=== PATIENT | female | born 1945 | race Asian ===

== ENCOUNTER 2017-11-12 07:21 | Observation (INO) | payer MEDICARE ==
[~2017-11-12] VITALS: Ht 157.5 cm; Wt 62.1 kg
[2017-11-12 07:27] VITALS: BP 165/78
[2017-11-12] MEDS ORDERED: NACL 0.9% 1,000 ML IV ONE (07:43)
[2017-11-12 08:22] LABS: BASOPHILS # (AUTO) 0.1 K/uL (0.00-0.22); BASOPHILS % (AUTO) 0.7 % (0.0-2.0); EOSINOPHILS # (AUTO) 0.1 K/uL (0-0.4); EOSINOPHILS % (AUTO) 1.1 % (0.0-4.0); HEMATOCRIT 37.9 % (36-48); HEMOGLOBIN 12.9 g/dL (12.0-16.0); LYMPHOCYTES # (AUTO) 2.8 K/uL (2.5-16.5); LYMPHOCYTES % (AUTO) 34.9 % (20.5-51.1); MEAN CORPUSCULAR HEMOGLOBIN 31 pg (27-31); MEAN CORPUSCULAR HGB CONC 34 g/dL (33-37); MEAN CORPUSCULAR VOLUME 89.8 fL (80-94); MONOCYTES # (AUTO) 0.5 K/uL (0.8-1.0); MONOCYTES % (AUTO) 5.7 % (1.7-9.3); NEUTROPHILS # (AUTO) 4.6 K/uL (1.8-7.7); NEUTROPHILS % (AUTO) 57.6 % (42.2-75.2); PLATELET COUNT (AUTO) 206 K/uL (140-450); RED BLOOD CELL COUNT(AUTO) 4.22 MIL/uL (4.20-5.40); RED CELL DISTRIBUTION WIDTH 13.2 % (11.6-13.7)
[2017-11-12 08:38] LABS: AMYLASE 37 U/L (25-115); LIPASE 211 U/L (73-393)
[2017-11-12 08:44] LABS: ANION GAP 11.3 (8-16); ASPARTATE AMINOTRANSFERASE 10 U/L (15-37); CARBON DIOXIDE 28.3 mmol/L (21-32); CHLORIDE 103 mmol/L (98-107); CREATININE 0.7 mg/dL (0.6-1.3); GLUCOSE 138 mg/dL (74-106); POTASSIUM 3.6 mmol/L (3.5-5.1); SODIUM SERUM 139 mmol/L (136-145); TOTAL BILIRUBIN 0.4 mg/dL (0.0-1.0); UREA NITROGEN, BLOOD 15 mg/dL (7-18)
[2017-11-12 09:17] LABS: PROTHROMBIN TIME 9.5 secs (10.8-13.4)
[2017-11-12 10:11] LABS: APPEARANCE,URINE CLEAR (CLEAR); BILIRUBIN,URINE NEGATIVE (NEGATIVE); BLOOD, URINE NEGATIVE (NEGATIVE); LEUKOCYTE ESTERASE ,URINE NEGATIVE (NEGATIVE); NITRITE, URINE NEGATIVE (NEGATIVE); PH,URINE 7.5 (5.0-9.0); UGLUCOSE NEGATIVE (NEGATIVE)
[2017-11-12 10:20] LABS: COLOR,URINE STRAW (YELLOW)
[2017-11-12 10:50] LABS: MAGNESIUM 1.8 mg/dL (1.8-2.4); THYROID STIMULATING HORMONE 2.23 uIU/mL (0.34-3.74)
[2017-11-12] MEDS ORDERED: ONDANSETRON 4 MG/2 ML VIAL IVP PRN (10:55)
[2017-11-12] MEDS ORDERED: DEXTROSE 50% 50 ML SYR IVP PRN (10:55)
[2017-11-12] MEDS ORDERED: INSULIN LISPRO SLIDING SCALE 100 UNITS/ML VIAL SUBQ PRN (10:55)
[2017-11-12] MEDS ORDERED: ACETAMINOPHEN 325 MG TAB PO PRN (10:55)
[2017-11-12] MEDS ORDERED: HYDROcodone/APAP 5/325 MG 1 TAB TAB PO PRN ×2 (10:55)
[2017-11-12 11:45] VITALS: BP 157/63
[2017-11-12] MEDS: BLOOD GLUCOSE MONITORING 1 DEV DEV FS SCH ×3 (12:14→20:14)
[2017-11-12] MEDS ORDERED: PANTOPRAZOLE 40 MG TABEC PO SCH (12:30)
[2017-11-12 16:00] VITALS: BP 149/63
[2017-11-12 17:46] LABS: CREATINE KINASE MB 0.6 ng/mL (0-3.6)
[2017-11-12 20:00] VITALS: BP 130/58
[2017-11-12] MEDS: LISINOPRIL 20 MG TAB PO SCH (20:11)
[2017-11-12] MEDS: CARVEDILOL 12.5 MG TAB PO SCH (20:11)
[2017-11-13 00:28] VITALS: BP 135/59
[2017-11-13 04:00] VITALS: BP 136/63
[2017-11-13 06:33] LABS: BASOPHILS # (AUTO) 0.1 K/uL (0.00-0.22); BASOPHILS % (AUTO) 1.6 % (0.0-2.0); EOSINOPHILS # (AUTO) 0.1 K/uL (0-0.4); EOSINOPHILS % (AUTO) 1.9 % (0.0-4.0); HEMATOCRIT 38.2 % (36-48); HEMOGLOBIN 12.7 g/dL (12.0-16.0); LYMPHOCYTES # (AUTO) 3.1 K/uL (2.5-16.5); LYMPHOCYTES % (AUTO) 38.7 % (20.5-51.1); MEAN CORPUSCULAR HEMOGLOBIN 30 pg (27-31); MEAN CORPUSCULAR HGB CONC 33 g/dL (33-37); MEAN CORPUSCULAR VOLUME 90.7 fL (80-94); MONOCYTES # (AUTO) 0.5 K/uL (0.8-1.0); MONOCYTES % (AUTO) 6.6 % (1.7-9.3); NEUTROPHILS # (AUTO) 4.1 K/uL (1.8-7.7); NEUTROPHILS % (AUTO) 51.2 % (42.2-75.2); PLATELET COUNT (AUTO) 204 K/uL (140-450); RED BLOOD CELL COUNT(AUTO) 4.21 MIL/uL (4.20-5.40); RED CELL DISTRIBUTION WIDTH 13.5 % (11.6-13.7); WHITE BLOOD COUNT (AUTO) 7.9 K/uL (4.8-10.8)
[2017-11-13] MEDS: BLOOD GLUCOSE MONITORING 1 DEV DEV FS SCH ×2 (06:46→12:09)
[2017-11-13 06:53] LABS: ALBUMIN 3.5 g/dL (3.4-5.0); ANION GAP 14.7 (8-16); ASPARTATE AMINOTRANSFERASE 9 U/L (15-37); CARBON DIOXIDE 27.5 mmol/L (21-32); CHLORIDE 106 mmol/L (98-107); CREATININE 0.8 mg/dL (0.6-1.3); GLUCOSE 142 mg/dL (74-106); MAGNESIUM 1.9 mg/dL (1.8-2.4); POTASSIUM 4.2 mmol/L (3.5-5.1); SODIUM SERUM 144 mmol/L (136-145); TOTAL BILIRUBIN 0.4 mg/dL (0.0-1.0); UREA NITROGEN, BLOOD 19 mg/dL (7-18)
[2017-11-13 08:00] VITALS: BP 156/61
[2017-11-13] MEDS: CARVEDILOL 12.5 MG TAB PO SCH (08:37)
[2017-11-13] MEDS: LISINOPRIL 20 MG TAB PO SCH (08:37)
[2017-11-13] MEDS: metFORMIN 500 MG TAB PO SCH ×2 (08:38→12:08)
[2017-11-13] MEDS ORDERED: OMEG-32 PO (08:49)
[2017-11-13] MEDS ORDERED: ASPI81CT89 PO (08:49)
[2017-11-13] MEDS ORDERED: AMLO10TA PO (08:49)
[2017-11-13] MEDS ORDERED: GLIM1TAB6 PO (08:49)
[2017-11-13] MEDS ORDERED: LISI-420 PO (08:49)
[2017-11-13] MEDS ORDERED: CALC-1030 PO (08:49)
[2017-11-13] MEDS ORDERED: CARV25TA PO (08:49)
[2017-11-13] MEDS ORDERED: PANTOPRAZOLE 40 MG TABEC PO SCH (09:00)
[2017-11-13] MEDS ORDERED: GLIMEPIRIDE 2 MG TAB PO SCH (09:00)
[2017-11-13] MEDS ORDERED: ASPIRIN 81 MG TAB.CHEW PO SCH ×2 (09:00)
[2017-11-13] MEDS ORDERED: amLODIPine 5 MG TAB PO SCH (09:00)
[2017-11-13 11:29] LABS: CREATINE KINASE MB 0.8 ng/mL (0-3.6)
[2017-11-13 12:00] VITALS: BP 123/64
== END 2017-11-13 15:40 | disposition home or self-care (01) ==
LOC: MED 07:21 → MTU 10:54
PROVIDERS: ADMIT Hospitalist; ATTEND Hospitalist
DX: R07.89 Other chest pain (principal); I10 Essential (primary) hypertension; E11.9 Type 2 diabetes mellitus without complications; E78.5 Hyperlipidemia, unspecified; K21.9 Gastro-esophageal reflux disease without esophagitis; Z86.73 Personal history of transient ischemic attack (TIA), and cerebral infarction without residual deficits; Z95.0 Presence of cardiac pacemaker
CPT/HCPCS: 36415; 71045; 80053; 81003; 82150; 82550; 82553; 82948; 83690; 83735; 83880; 84443; 84484; 85025; 85610; 85730; 87081; 93005; 93017; 96360; 96361; 99285; G0378; J1815

== ENCOUNTER 2018-08-06 01:29 | Emergency (ER) | payer MEDICARE ==
[~2018-08-06] VITALS: Ht 152.4 cm; Wt 62.6 kg
[~2018-08-06 01:29] MED LIST: AMLO10TA PO; ASPI-1718 PO; CALC-1030 PO; CARV25TA PO; GLIM1TAB6 PO; LISI-420 PO; OMEG-32 PO
--- NOTE | 2018-08-06 01:30 | NUR ---
BIB WHEELCHAIR TO ER BED 6
[2018-08-06 01:36] VITALS: BP 161/84
[2018-08-06] MEDS ORDERED: ASPIRIN 81 MG TAB.CHEW PO ONE (01:40)
[2018-08-06] MEDS ORDERED: NACL 0.9% 1,000 ML IV ONE (01:40)
--- NOTE | 2018-08-06 01:45 | NUR ---
PT BIB FAMILY C/O 12/08 SUDDEN ONSET SHARP CP, RADIATING TO BACK, X30 MINS. REPORTS SLIGHT SOB. RR SYMMETRICAL, NON LABORED, WITH BREATH SOUNDS CLEAR THROUGHOUT. RADIAL PULSES EQUAL 2+, CAP REFIL <3 SEC, NO EDEMA PRESENT. PT REPORTED NUMBNESS IN L SIDE OF FACE. FACIAL SYMMETRY INTACT, BUE STRONG EQUAL, SPEECH CLEAR, AAOX4, COOPERATIVE, GAIT UNSTEADY. DENIES N/V. VSS. ER MD TO SEE PT. WILL CONTINUE TO MONITOR. HX HTN, DM, PACEMAKER (2013), CVA (2004)
[2018-08-06] MEDS ORDERED: KETOROLAC 30 MG/ML VIAL IVP ONE (01:50)
[2018-08-06 01:54] LABS: BASOPHILS # (AUTO) 0.2 K/uL (0.00-0.22); BASOPHILS % (AUTO) 1.9 % (0.0-2.0); EOSINOPHILS # (AUTO) 0.5 K/uL (0-0.4); EOSINOPHILS % (AUTO) 4.4 % (0.0-4.0); HEMATOCRIT 39.8 % (36-48); HEMOGLOBIN 12.9 g/dL (12.0-16.0); LYMPHOCYTES # (AUTO) 3.7 K/uL (2.5-16.5); LYMPHOCYTES % (AUTO) 36.5 % (20.5-51.1); MEAN CORPUSCULAR HEMOGLOBIN 30 pg (27-31); MEAN CORPUSCULAR HGB CONC 32 g/dL (33-37); MEAN CORPUSCULAR VOLUME 92.6 fL (80-94); MONOCYTES # (AUTO) 0.8 K/uL (0.8-1.0); MONOCYTES % (AUTO) 7.8 % (1.7-9.3); NEUTROPHILS # (AUTO) 5.1 K/uL (1.8-7.7); NEUTROPHILS % (AUTO) 49.4 % (42.2-75.2); PLATELET COUNT (AUTO) 178 K/uL (140-450); WHITE BLOOD COUNT (AUTO) 10.3 K/uL (4.8-10.8)
[2018-08-06 02:08] LABS: CARBON DIOXIDE 30.9 mmol/L (21-32); CHLORIDE 104 mmol/L (98-107); CREATININE 0.8 mg/dL (0.6-1.3); GLUCOSE 168 mg/dL (74-106); POTASSIUM 3.9 mmol/L (3.5-5.1); SODIUM SERUM 138 mmol/L (136-145); UREA NITROGEN, BLOOD 16 mg/dL (7-18)
[2018-08-06 02:14] LABS: ASPARTATE AMINOTRANSFERASE 10 U/L (15-37); TOTAL BILIRUBIN 0.4 mg/dL (0.0-1.0)
--- NOTE | 2018-08-06 02:43 | NUR ---
X-RAY AT BEDSIDE AT THIS TIME.
[2018-08-06 03:16] VITALS: BP 152/78
--- NOTE | 2018-08-06 03:16 | NUR ---
Patient discharged with v/s stable. Written and verbal after care instructions given and explained. Patient verbalized understanding. Ambulatory with steady gait. All questions addressed prior to discharge. Advised to follow up with PMD.
--- NOTE | 2018-08-06 03:17 | NUR ---
PT AMBULATED TO THE RESTROOM. PT TOLERATED IT WELL.
== END 2018-08-06 03:16 | disposition home or self-care (01) ==
LOC: MED 01:29
DX: R07.89 Other chest pain (principal); R06.02 Shortness of breath; R20.0 Anesthesia of skin; I10 Essential (primary) hypertension; E11.9 Type 2 diabetes mellitus without complications; K21.9 Gastro-esophageal reflux disease without esophagitis; Z95.0 Presence of cardiac pacemaker; Z79.1 Long term (current) use of non-steroidal anti-inflammatories (NSAID); Z79.84 Long term (current) use of oral hypoglycemic drugs
CPT/HCPCS: 36415; 71045; 80053; 84484; 85025; 85379; 85610; 85730; 96374; 99284; J1885; J7030; 93005

== ENCOUNTER 2019-05-07 06:26 | Emergency (ER) | payer MEDICARE ==
[~2019-05-07] VITALS: Ht 157.5 cm; Wt 62.6 kg
[~2019-05-07 06:26] MED LIST changes: -GLIM1TAB6 PO; +GLIM1TAB7 PO
--- NOTE | 2019-05-07 06:39 | NUR ---
Estelita grady in [facility] - 05/07/19 at 0644 by LOPEZ PT TAKEN TO ER BED 08
[2019-05-07 06:40] VITALS: BP 195/68
--- NOTE | 2019-05-07 06:45 | NUR ---
PT TAKEN TO ER BED 09
--- NOTE | 2019-05-07 06:45 | NUR ---
PT ARRIVED TO ED C/O LEFT SHOULDER PAIN X 1 WEEK. PT STATES PAIN IS 9/10 AND DESCRIBES IT SORENESS AND BURNING. NO OBVIOUS INJURY OR DEFORMITY NOTED ON SHOULDERS OR EXTREMETIES. VSS. NO DISTRESS NOTED. PT STATES THE PAIN GOT WORSE LAST NIGHT. PT DENIES ANY INJURY, TRUAMA, OR FALLS. PT STAES SHE TOOK TYELNOL AT 1030 LAST NIGHT FOR PAIN BUT SHE STATES IT DIDNT WORK. SHE ALSO STATES SHE TOOK A PAIN MED PATCH AT 1700 LAST NIGHT WELL, UNAWARE OF THE NAME OF THE MED. CMS INTACT ON EXTREM. PT STATES SHE HAS A PACEMAKER. SHE ALSO COMPLAINS NUMBNESS AND TINGLING ON LEFT EXTREM D/T PAIN. NKA. PMH: HTN,DM, HIGH CHOLESTEROL, STROKE.
--- NOTE | 2019-05-07 06:57 | NUR ---
XR AT BEDSIDE.
--- NOTE | 2019-05-07 07:02 | NUR ---
JOCELIN, EMT AT BEDSIDE DOING EKG.
--- NOTE | 2019-05-07 07:18 | NUR ---
GAVE REPORT TO INDIRA SHEPHERD. TRANSFER OF CARE AT THIS TIME.
--- NOTE | 2019-05-07 07:19 | NUR ---
RECEIVED REPORT FROM INDIRA BLANKENSHIP FOR CONTINUATION OF CARE
[2019-05-07] MEDS: KETOROLAC 30 MG/ML VIAL IM ONE (08:09)
[2019-05-07] MEDS: CYCLOBENZAPRINE 10 MG TAB PO ONE (08:10)
--- NOTE | 2019-05-07 08:10 | NUR ---
PT RESTING IN BED, NO NEW NEEDS AT THIS TIME.
--- NOTE | 2019-05-07 09:46 | NUR ---
Patient discharged with v/s stable. Written and verbal after care instructions given and explained. Patient alert, oriented and verbalized understanding of instructions. Ambulatory with steady gait. All questions addressed prior to discharge. ID band removed. Patient advised to follow up with PMD. Rx of NAPROXEN & FLEXERIL given. Patient educated on indication of medication including possible reaction and side effects. Opportunity to ask questions provided and answered.
[2019-05-07 09:47] VITALS: BP 186/78
== END 2019-05-07 09:46 | disposition home or self-care (01) ==
LOC: MED 06:26
DX: R25.2 Cramp and spasm (principal); M62.830 Muscle spasm of back; Z79.899 Other long term (current) drug therapy; Z79.82 Long term (current) use of aspirin
CPT/HCPCS: 73030; 93005; 96372; 99283; J1885; Q0092